=== PATIENT | male | born 1985 | race African-American/Black ===

== ENCOUNTER 2016-12-04 23:19 | Emergency (ER) | payer MEDICAID ==
[~2016-12-04 23:19] MED LIST: IBUP800T23 PO
[2016-12-04 23:22] VITALS: BP 147/90; PULSE 65; RESP 16; TEMP 98.1; O2SAT 98
[2016-12-05] MEDS ORDERED: diphenhydrAMINE HCL 50 MG/ML VIAL IM ONE (01:15)
[2016-12-05] MEDS ORDERED: PENICILLIN V POTASSIUM 500 MG TAB PO ONE (01:15)
[2016-12-05] MEDS ORDERED: PENI500T PO (01:16)
--- NOTE | 2016-12-05 01:16 | PD ---
HPI Chief Complaint: Oral / Dental Pain or Problem Time Seen by Provider: 01:05 Travel History International Travel<30 days: No Contact w/Intl Traveler<30days: No Traveled to known affect area: No History of Present Illness HPI This is a 31-year-old male presents for evaluation of dental pain. He has had pain localized to the left maxillary and mandibular central incisors for the past few days. Today he put some topical benzocaine around his teeth and now he feels like his lower gumline is swollen. He reports a burning sensation associated with it. He is never used topical anesthetic in the past however he has had lidocaine injection during previous dental procedures with no associated adverse reaction. He denies any swelling of the tongue, lips, throat , difficulty swallowing, rash, shortness of breath. He is not a complaint this time. PFSH Past Medical History Diminished Hearing: No Social History Alcohol Use: No Tobacco Use: Yes (04/25 PPD) Substance Use: Yes (MARIJUANA) Allergies-Medications (Allergen,Severity, Reaction): Coded Allergies: No Known Allergies (Verified , 04/02/15) Reported Meds & Prescriptions Reported Meds & Active Scripts Active Penicillin V Potassium 500 Mg Tab 500 Mg PO Q8H 10 Days Ibuprofen 800 Mg Tab 800 Mg PO Q8HR PRN 7 Days Review of Systems Except as stated in HPI: all other systems reviewed are Neg Physical Exam Narrative GENERAL: Well-developed well-nourished male in no acute distress SKIN: Warm and dry. HEAD: Atraumatic. Normocephalic. EYES: Pupils equal and round. No scleral icterus. No injection or drainage. ENT: No nasal bleeding or discharge. Mucous membranes pink and moist. Some dental decay is noted to the central maxillary and mandibular incisors. There is some nonspecific soft tissue swelling noted to the lower gumline. No swelling of the lips, tongue, uvula. Voice is not hoarse or muffled, no stridor or drooling. There is no trismus. There is no facial edema. There is no submandibular edema. NECK: Trachea midline. No JVD. No lymphadenopathy. CARDIOVASCULAR: Regular rate and rhythm. No murmur appreciated. RESPIRATORY: No accessory muscle use. Clear to auscultation. Breath sounds equal bilaterally. Data Data Last Documented VS Vital Signs Date Time Temp Pulse Resp B/P Pulse Ox O2 Delivery O2 Flow Rate FiO2 12/04/16 23:22 98.1 65 16 147/90 98 Orders Diphenhydramine Inj (Benadryl Inj) (12/05/16 01:15) Penicillin V Potassium (Veetids) (12/05/16 01:15) [facility] Medical Decision Making Medical Screen Exam Complete: Yes Emergency Medical Condition: Yes Medical Record Reviewed: Yes Differential Diagnosis Dental caries, pulpitis, pericoronitis,. Periodontal abscess, adverse reactions benzocaine Narrative Course 31-year-old male presents with dental pain for the past few days. He put some topical benzocaine on his lower gumline and since then his lower gum line has been having a burning sensation and has felt swollen. On examination he does have mild nonspecific soft tissue swelling to the lower gumline. He has obvious dental decay. The patient is encouraged to avoid benzocaine or other topical anesthetics in the future. He will be given a dose of Benadryl and penicillin here. He will be discharged with penicillin VK. He is stable for discharge. Diagnosis Primary Impression: Dental caries Additional Impression: Benzocaine adverse reaction Qualified Code: T41.3X5A - Adverse effect of benzocaine, initial encounter Additional Instructions: Avoid benzocaine. Take Tylenol or Motrin for discomfort per dosing instructions on the bottle. Medication as prescribed. Follow-up with dentist for definitive therapy. Return for any emergent medical conditions. Med/Other Pt SpecificInfo: Prescription(s) given Scripts Penicillin V Potassium 500 Mg [id number] Mg PO Q8H 10 Days Ref 0 Prov:Tushar Edwards MD 12/05/16 Disposition: DISCHARGE HOME Condition: Stable Vishal Goodson Dec 05, 2016 01:16
== END 2016-12-05 02:01 | disposition home or self-care (01) ==
LOC: NEPD 23:19
DX: K02.9 Dental caries, unspecified (principal); T41.3X5A Adverse effect of local anesthetics, initial encounter; F17.290 Nicotine dependence, other tobacco product, uncomplicated; F12.10 Cannabis abuse, uncomplicated
CPT/HCPCS: 96372; 99284; J1200

== ENCOUNTER 2017-07-08 14:21 | Inpatient (IN) | payer OTHER, MEDICAID ==
[~2017-07-08] VITALS: Ht 167.6 cm; Wt 72.5 kg
[~2017-07-08 14:21] MED LIST changes: -IBUP800T23 PO; +PENI500T PO
[2017-07-08 15:02] VITALS: BP 141/70; PULSE 85; RESP 20; TEMP 98.7; O2SAT 98
[2017-07-08] MEDS ORDERED: SODIUM CHLOR 0.9% 1000 ML INJ 1,000 ML IV SCH (15:09)
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
[2017-07-08] MEDS ORDERED: MORPHINE SULFATE 4 MG/ML INJ IV PUSH ONE (15:15)
[2017-07-08] MEDS ORDERED: SODIUM CHLORIDE 0.9% FLUSH 10 ML FLUSH IV FLUSH PRN ×2 (15:15→20:45)
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
[2017-07-08 16:14] VITALS: BP 135/71; PULSE 70; RESP 12; O2SAT 95
[2017-07-08 16:42] LABS: AUTOMATED NEUTROPHIL # 6.2 TH/MM3 (1.8-7.7); BASOPHIL % 0.4 % (0.0-2.0); EOSINOPHIL % 0.1 % (0.0-4.0); HEMATOCRIT 43.1 % (39.0-51.0); HEMOGLOBIN 14.9 GM/DL (13.0-17.0); LYMPH % 4.7 % (9.0-44.0); LYMPHOCYTE # 0.3 TH/MM3 (1.0-4.8); MEAN CELL VOLUME 91.5 FL (80.0-100.0); MEAN CORPUSCULAR HEMOGLOBIN 31.6 PG (27.0-34.0); MEAN CORPUSCULAR HGB CONC 34.5 % (32.0-36.0); MEAN PLATELET VOLUME 8.3 FL (7.0-11.0); MONO % 9.9 % (0.0-8.0); MONOCYTE # 0.7 TH/MM3 (0-0.9); NEUT % 84.9 % (16.0-70.0); PLATELET COUNT 133 TH/MM3 (150-450); RED BLOOD COUNT 4.71 MIL/MM3 (4.50-5.90); RED CELL DISTRIBUTION WIDTH 12.9 % (11.6-17.2); WHITE BLOOD COUNT 7.3 TH/MM3 (4.0-11.0)
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
[2017-07-08 17:01] LABS: INTERNATIONAL NORMALIZED RATIO 1.1 RATIO; PROTHROMBIN TIME - PATIENT 10.7 SEC (9.8-11.6)
[2017-07-08 17:02] LABS: ALBUMIN 4.5 GM/DL (3.4-5.0); ALT (GPT) 46 U/L (12-78); AST (GOT) 41 U/L (15-37); BICARBONATE 25.5 MEQ/L (21.0-32.0); BLOOD UREA NITROGEN 13 MG/DL (7-18); CALCIUM 9.1 MG/DL (8.5-10.1); CHLORIDE 100 MEQ/L (98-107); CREATININE 1.39 MG/DL (0.60-1.30); GLOMERULAR FILTRATION RATE 71 ML/MIN (>89); GLUCOSE,RANDOM 131 MG/DL (74-106); SODIUM (NA) 135 MEQ/L (136-145)
[2017-07-08 17:05] LABS: ALKALINE PHOSPHATASE 76 U/L (45-117); TOTAL BILIRUBIN ADULT 0.6 MG/DL (0.2-1.0)
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
[2017-07-08 19:01] LABS: BILIRUBIN, URINE NEG (NEG); BLOOD, URINE TRACE (NEG); GLUCOSE,URINE NEG (NEG); KETONE, URINE 40 mg/dL (NEG); MUCUS URINE FEW /lpf (OCC); NITRITE,URINE NEG (NEG); URINE COLOR YELLOW (YELLW/STRAW); URINE LEUKOCYTE ESTERASE NEG (NEG)
[2017-07-08 19:14] VITALS: BP 134/72; PULSE 80; RESP 16; TEMP 100.2; O2SAT 98
[2017-07-08] MEDS ORDERED: MISCELLANEOUS NURSING INFORMATION XX SCH (20:45)
[2017-07-08] MEDS ORDERED: MORPHINE SULFATE 2 MG/ML INJ IV PRN (20:45)
[2017-07-08] MEDS ORDERED: ONDANSETRON HCL 4 MG/2 ML VIAL IV PUSH PRN (20:45)
[2017-07-08] MEDS ORDERED: ACETAMINOPHEN/HYDROcodone 325 MG/5 MG TAB PO PRN (20:45)
[2017-07-08] MEDS ORDERED: CHLORHEXIDINE GLUCONATE 2 % 1 PACK (2 CLOTHS) TOP PRN (20:45)
[2017-07-08] MEDS ORDERED: ENALAPRILAT 1.25 MG/ML VIAL IV PUSH PRN (20:45)
[2017-07-08 21:00] VITALS: BP 135/74; PULSE 75; RESP 16; O2SAT 98
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
[2017-07-08 23:00] VITALS: BP 130/69; PULSE 70; RESP 16; O2SAT 100
[2017-07-08] MEDS: BACITRACIN TOP OINT 15 GM TUBE TOP SCH (23:09)
[2017-07-09] MEDS ORDERED: CHLORHEXIDINE GLUCONATE 2 % 1 PACK (2 CLOTHS) TOP SCH (04:00)
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
[2017-07-09] MEDS ORDERED: MAGN30S PO (08:21)
[2017-07-09] MEDS ORDERED: PERI PO (08:21)
[2017-07-09 08:33] VITALS: BP 136/86; PULSE 67; RESP 20; TEMP 98.2; O2SAT 95
[2017-07-09] MEDS: CLINDAMYCIN 300 MG/NS PREMIX 50 ML IV SCH ×2 (08:46→15:47)
[2017-07-09] MEDS: MAGNESIUM HYDROXIDE SUSP 30 ML CUP PO SCH ×2 (08:47→20:27)
[2017-07-09] MEDS: DOCUSATE SODIUM 50 MG/SENNA 8.6 MG TAB PO SCH ×2 (08:48→20:27)
[2017-07-09] MEDS: BACITRACIN TOP OINT 15 GM TUBE TOP SCH ×2 (09:00→20:27)
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
[2017-07-09 11:00] VITALS: BP 148/72; PULSE 72; RESP 16; TEMP 99; O2SAT 93
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
[2017-07-09 15:53] VITALS: BP 112/77; PULSE 60; RESP 12; TEMP 98.4; O2SAT 95
[2017-07-09] MEDS ORDERED: MORPHINE SULFATE 2 MG/ML INJ IV PRN (18:00)
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
[2017-07-09 20:23] VITALS: BP 139/83; PULSE 62; RESP 16; O2SAT 99
[2017-07-09] MEDS: ACETAMINOPHEN/HYDROcodone 325 MG/5 MG TAB PO PRN (20:28)
[2017-07-10] MEDS: CLINDAMYCIN 300 MG/NS PREMIX 50 ML IV SCH ×3 (00:54→15:34)
[2017-07-10] MEDS ORDERED: POVIDONE IODINE 5% (ANTISEPSIS KIT) 4 APPLICATIONS EACH NARE PRN (04:00)
[2017-07-10] MEDS ORDERED: CHLORHEXIDINE GLUCONATE 2 % 1 PACK (2 CLOTHS) TOPICAL PRN (04:00)
[2017-07-10] MEDS ORDERED: LACTATED RINGER'S 1000 ML IV PRN (04:00)
[2017-07-10] MEDS ORDERED: SODIUM CHLORID 0.9% 500 ML IV PRN (04:00)
[2017-07-10 05:16] VITALS: BP 105/63; PULSE 74; RESP 18; TEMP 99.1; O2SAT 98
[2017-07-10 08:58] VITALS: BP 129/68; PULSE 63; RESP 18; TEMP 98.4; O2SAT 97
[2017-07-10] MEDS: MAGNESIUM HYDROXIDE SUSP 30 ML CUP PO SCH ×2 (09:00→21:19)
[2017-07-10] MEDS: DOCUSATE SODIUM 50 MG/SENNA 8.6 MG TAB PO SCH ×2 (09:00→21:19)
[2017-07-10] MEDS: BACITRACIN TOP OINT 15 GM TUBE TOP SCH ×2 (09:00→21:20)
[2017-07-10] MEDS: ACETAMINOPHEN/HYDROcodone 325 MG/5 MG TAB PO PRN ×3 (09:26→21:19)
[2017-07-10 12:21] VITALS: BP 119/64; PULSE 61; RESP 18; TEMP 98.4; O2SAT 97
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
[2017-07-10] MEDS: ACETAMINOPHEN 1000 MG/100 ML 100 ML IV SCH ×2 (15:30→21:20)
[2017-07-10 16:33] VITALS: BP 118/68; PULSE 62; RESP 18; TEMP 98.5
--- NOTE | 2017-07-10 17:20 | RADRPT ---
EXAM DATE/TIME: 07/10/2017 17:06 [facility] COMPARISON: No previous studies available for comparison. INDICATIONS : Left side hip pain. MEDICAL HISTORY : None. SURGICAL HISTORY : None. ENCOUNTER: Initial ACUITY: 3 days PAIN SCORE: 5/10 LOCATION: Left pelvis. FINDINGS: A single frontal view of the pelvis demonstrates no evidence of fracture. The bony pelvic ring is in tact. Bony mineralization is normal. The soft tissues are intact. CONCLUSION: No acute disease. Albert Hernández MD FACR on July 10, 2017 at 17:17 Board Certified Radiologist. This report was verified electronically.
[2017-07-10 20:20] VITALS: BP 109/57; PULSE 68; RESP 16; TEMP 98.5; O2SAT 98
[2017-07-10 23:18] VITALS: BP 118/67; PULSE 63; RESP 16; TEMP 98.1; O2SAT 99
[2017-07-11] MEDS: CLINDAMYCIN 300 MG/NS PREMIX 50 ML IV SCH ×3 (00:41→16:00)
[2017-07-11] MEDS: ACETAMINOPHEN 1000 MG/100 ML 100 ML IV SCH ×4 (03:00→21:30)
[2017-07-11 03:22] VITALS: BP 112/59; PULSE 68; RESP 16; TEMP 98.3; O2SAT 96
[2017-07-11] MEDS: ACETAMINOPHEN/HYDROcodone 325 MG/5 MG TAB PO PRN (06:29)
[2017-07-11 07:55] VITALS: BP 104/52; PULSE 60; RESP 18; TEMP 98.9; O2SAT 95
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
[2017-07-11] MEDS: MAGNESIUM HYDROXIDE SUSP 30 ML CUP PO SCH ×2 (09:00→20:23)
[2017-07-11] MEDS: DOCUSATE SODIUM 50 MG/SENNA 8.6 MG TAB PO SCH ×2 (09:00→20:23)
[2017-07-11] MEDS: BACITRACIN TOP OINT 15 GM TUBE TOP SCH ×2 (09:45→21:00)
[2017-07-11 11:29] LABS: HEMATOCRIT 45.6 % (39.0-51.0); HEMOGLOBIN 15.9 GM/DL (13.0-17.0); MEAN CELL VOLUME 90.7 FL (80.0-100.0); MEAN CORPUSCULAR HEMOGLOBIN 31.7 PG (27.0-34.0); MEAN PLATELET VOLUME 8.7 FL (7.0-11.0); PLATELET COUNT 120 TH/MM3 (150-450); RED BLOOD COUNT 5.02 MIL/MM3 (4.50-5.90); RED CELL DISTRIBUTION WIDTH 13.1 % (11.6-17.2)
[2017-07-11 11:48] LABS: BICARBONATE 25.6 MEQ/L (21.0-32.0); CALCIUM 8.4 MG/DL (8.5-10.1); CREATININE 1.09 MG/DL (0.60-1.30)
[2017-07-11] MEDS ORDERED: SODIUM CHLOR 0.9% 250 ML INJ 250 ML IV ONE (12:00)
[2017-07-11] MEDS ORDERED: ROCURONIUM INJ 50 MG/5 ML SYRINGE IV PUSH ONE (12:00)
[2017-07-11] MEDS ORDERED: SODIUM CHLORID 0.9% 500 ML INJ 500 ML IV ONE (12:00)
[2017-07-11] MEDS ORDERED: GLYCOPYRROLATE 1 MG/5 ML SYRINGE IV PUSH ONE (12:00)
[2017-07-11] MEDS ORDERED: LIDOCAINE HCL 1% PF 5 ML SYRINGE OTHER ONE (12:00)
[2017-07-11] MEDS ORDERED: ONDANSETRON HCL 4 MG/2 ML VIAL IV PUSH ONE (12:00)
[2017-07-11] MEDS ORDERED: NEOSTIGMINE 5 MG/5 ML SYRINGE IV PUSH ONE (12:00)
[2017-07-11] MEDS ORDERED: DEXAMETHASONE SOD PHOS 4 MG/ML VIAL IV ONE (12:00)
[2017-07-11] MEDS ORDERED: PROPOFOL 200 MG/20 ML AMP IV ONE (12:00)
[2017-07-11 12:23] VITALS: BP 121/73; PULSE 76; RESP 18; TEMP 99; O2SAT 95
[2017-07-11] MEDS ORDERED: BUPIVACAINE/EPINEPHRINE 0.25% 50 ML VIAL ONE (14:03)
[2017-07-11] MEDS ORDERED: fentaNYL CITRATE 250 MCG/5 ML AMP ONE (17:19)
[2017-07-11] MEDS ORDERED: MIDAZOLAM HCL 2 MG/2 ML VIAL ONE (17:19)
[2017-07-11] MEDS ORDERED: CLINDAMYCIN PHOS 600 MG/4 ML VIAL ONE (18:35)
[2017-07-11] MEDS ORDERED: DO NOT ADM ANY ANTICOAGULANT DRUGS PRN (19:45)
[2017-07-11 20:15] VITALS: BP 137/84; PULSE 64; RESP 18; TEMP 98.6; O2SAT 96
[2017-07-11 22:43] VITALS: PULSE 59
--- NOTE | 2017-07-11 23:07 | RADRPT ---
EXAM DATE/TIME: 07/11/2017 22:17 [facility] COMPARISON: No previous studies available for comparison. INDICATIONS : Right side facial fractures, evaluate post surgery. RADIATION DOSE: 29.28 CTDIvol (mGy) MEDICAL HISTORY : None SURGICAL HISTORY : None. ENCOUNTER: Initial ACUITY: 1 day PAIN SCORE: 7/10 LOCATION: Right facial TECHNIQUE: Volumetric scanning of the facial bones was performed. Using automated exposure control and adjustme nt of the mA and/or kV according to patient size, radiation dose was kept as low as reasonably achiev able to obtain optimal diagnostic quality images. DICOM format image data is available electronicAppwapp y for review and comparison. FINDINGS: Compare July 08. There is improvement in alignment of the zygomatic arch fracture and posterior wall right maxillary sinus fractures. Lateral orbital rim fracture unchanged on the right. Slight improve ment in alignment of right orbital floor fracture. Fracture line extends into squamous portion right temporal bone. There is fluid or hemorrhage in the right maxillary sinus. CONCLUSION: 1. Improvement in alignment of right sided facial fractures as above. No new fractures identified. Th ere is air in the subcutaneous tissues. Globes intact. Right-sided facial swelling present. Jaya Almeida MD on July 11, 2017 at 23:01 Board Certified Radiologist. This report was verified electronically.
[2017-07-12] VITALS (7 sets, daily range): BP systolic 117–131; BP diastolic 60–75; PULSE 57–69; RESP 16–18; TEMP 97.5–98.9; O2SAT 95–100
[2017-07-12] MEDS: CLINDAMYCIN 300 MG/NS PREMIX 50 ML IV SCH (01:02)
[2017-07-12] MEDS: ACETAMINOPHEN/HYDROcodone 325 MG/5 MG TAB PO PRN ×3 (01:03→12:22)
[2017-07-12] MEDS: BACITRACIN TOP OINT 15 GM TUBE TOP SCH (08:24)
[2017-07-12] MEDS: DOCUSATE SODIUM 50 MG/SENNA 8.6 MG TAB PO SCH (08:24)
[2017-07-12] MEDS: MAGNESIUM HYDROXIDE SUSP 30 ML CUP PO SCH (08:24)
[2017-07-12] MEDS ORDERED: CEPH-460 PO (14:18)
[2017-07-12] MEDS ORDERED: HYDR-3516 PO (14:18)
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
== END 2017-07-12 16:24 | disposition home or self-care (01) | DRG 131 ==
LOC: NEPD 14:21 → NEDA 18:48 → NEPHCDU 22:55 → OBSVTOIN 07-09 17:43 → N06B 07-11 15:27
PROVIDERS: ADMIT Surgery; ATTEND Surgery
PROC: 0NSM0ZZ Reposition Right Zygomatic Bone, Open Approach (ICD-10-PCS; principal; 2017-07-11 17:55)
DX: S02.40EA Zygomatic fracture, right side, initial encounter for closed fracture (principal); S02.19XA Other fracture of base of skull, initial encounter for closed fracture; S06.0X9A Concussion with loss of consciousness of unspecified duration, initial encounter; S02.40CA Maxillary fracture, right side, initial encounter for closed fracture; H57.02 Anisocoria; V43.52XA Car driver injured in collision with other type car in traffic accident, initial encounter; Y92.410 Unspecified street and highway as the place of occurrence of the external cause; Z72.0 Tobacco use
CPT/HCPCS: 70450; 70486; 71045; 72125; 72170; 80048; 80053; 80307; 81001; 85025; 85027; 85610; 85730; 96361; 96374; G0378; J0131; J1100; J2250; J2270; J2405; J2710; J3010; J7030; J7040; J7050